=== PATIENT | male | born 1960 | race Caucasian/White ===

== ENCOUNTER 2018-08-10 12:16 | Emergency (ER) | payer BC ==
[2018-08-10] MEDS ORDERED: SODIUM CHLORIDE 0.9% 1,000 ML IV SCH (12:45)
--- NOTE | 2018-08-10 12:47 | ED ---
General Adult HPI - General Chief complaint: Headache Stated complaint: blood clots Time Seen by Provider: 08/10/18 12:35 Source: patient, RN notes reviewed, old records reviewed Mode of arrival: ambulatory Limitations: no limitations - History of Present Illness Initial comments: 57-year-old male presents for evaluation of headache for the past 3 weeks. Headache described as occipital and frontal. Patient was seen at outside clinic and CAT scan was obtained yesterday. The results of this CAT scan today indicated patient had a intracranial hemorrhage. He was told to present to the emergency department for evaluation. Patient states headache is improved over the past 3 weeks. He is not on any anticoagulation. Not currently on any medication. Denies focal numbness or weakness. Denies vision changes. Denies recent trauma. - Related Data Home Medications Medication Instructions Recorded Confirmed Acetaminophen Tab [Tylenol] 650 mg PO Q8H 08/10/18 08/10/18 Ibuprofen [Motrin Ib] 800 mg PO Q8H 08/10/18 08/10/18 Allergies Allergy/AdvReac Type Severity Reaction Status Date / Time levofloxacin [From Levaquin] Allergy Rash/Hives Verified 08/10/18 13:03 Review of Systems ROS Statement: Those systems with pertinent positive or pertinent negative responses have been documented in the HPI. ROS Other: All systems not noted in ROS Statement are negative. Past Medical History Past Medical History: No Reported History History of Any Multi-Drug Resistant Organisms: None Reported Past Surgical History: Appendectomy, Orthopedic Surgery Past Psychological History: No Psychological Hx Reported Smoking Status: Current every day smoker Past Alcohol Use History: Occasional Past Drug Use History: Marijuana General Exam Limitations: no limitations General appearance: alert, in no apparent distress Head exam: Present: atraumatic, normocephalic Eye exam: Present: normal appearance, PERRL, EOMI ENT exam: Present: normal exam Neck exam: Present: normal inspection. Absent: tenderness, meningismus Respiratory exam: Present: normal lung sounds bilaterally. Absent: respiratory distress, wheezes Cardiovascular Exam: Present: regular rate, normal rhythm GI/Abdominal exam: Present: soft. Absent: distended, tenderness Extremities exam: Present: normal inspection, full ROM Neurological exam: Present: alert, oriented X3, CN II-XII intact, normal gait, motor sensory deficit Expanded Speech: Present: fluid speech Cranial nerves: EOM's Intact: Normal, Gag Reflex: Normal, Tongue Deviation: Normal, Nystagmus: Normal Cerebellar function: Finger to Nose: Normal Sensory exam: Upper Extremity Light Touch: Normal, Lower Extremity Light Touch: Normal Motor strength exam: RUE: 5, LUE: 5, RLE: 5, LLE: 5 Eye Response: (4) open spontaneously Motor Response: (6) obeys commands Verbal Response: (5) oriented Psychiatric exam: Present: normal affect, normal mood Skin exam: Present: warm, dry, intact. Absent: cyanosis, diaphoretic Course Vital Signs 08/10/18 12:26 Temperature 98.2 F Pulse Rate 92 Respiratory 20 Rate Blood Pressure 176/83 O2 Sat by Pulse 99 Oximetry Medical Decision Making - Medical Decision Making 57-year-old male presenting with abnormal outpatient computed tomography scan. This is repeated in the emergency department as records are not immediately available for review. Patient has bilateral subdural hematomas which may be chronic measured T-max 6 mm. No midline shift. Patient is well-appearing, no focal neurological deficits. No anticoagulation. Patient will be transferred for neurosurgical evaluation. Case is discussed with Dr. Barney, josefina shah. - Lab Data Result diagrams: 08/10/18 12:47 Lab Results 08/10/18 Range/Units 12:47 Sodium 142 (137-145) mmol/L Potassium 4.5 (3.5-5.1) mmol/L Chloride 110 H (98-107) mmol/L Carbon Dioxide 22 (22-30) mmol/L Anion Gap 10 mmol/L BUN 25 H (9-20) mg/dL Creatinine 0.98 (0.66-1.25) mg/dL Est GFR (CKD-EPI)AfAm >90 (>60 ml/min/1.73 sqM) Est GFR (CKD-EPI)NonAf 86 (>60 ml/min/1.73 sqM) Glucose 119 H (74-99) mg/dL Calcium 9.7 (8.4-10.2) mg/dL Total Bilirubin 0.9 (0.2-1.3) mg/dL AST 21 (17-59) U/L ALT 32 (21-72) U/L Alkaline Phosphatase 60 (38-126) U/L Total Protein 7.2 (6.3-8.2) g/dL Albumin 4.7 (3.5-5.0) g/dL Critical Care Time Critical Care Time: Yes Total Critical Care Time: 35 Disposition Clinical Impression: Bilateral subdural hematomas Disposition: OTHER INSTITUTION NOT DEFINED Condition: Serious Is patient prescribed a controlled substance at d/c from ED?: No Referrals: None,Stated [Primary Care Provider] - 1-2 days Time of Disposition: 13:29 - Out of Hospital Transfer - Req. Specs Out of Hospital Transfer - Requested Specifics: Other Emergency Center ( Transfer to [facility])
[2018-08-10 13:10] LABS: Basophils % (A) 0 %; Eosinophils # (A) 0.1 k/uL (0-0.7); Eosinophils % (A) 2 %; HCT 49.3 % (39.0-53.0); HGB 16.4 gm/dL (13.0-17.5); Lymphocytes # (A) 1.3 k/uL (1.0-4.8); Lymphocytes % (A) 18 %; MCHC 33.4 g/dL (31.0-37.0); Mean Platelet Volume 6.8; Monocytes # (A) 0.4 k/uL (0-1.0); Monocytes % (A) 5 %; Neutrophils # (A) 5.5 k/uL (1.3-7.7); Neutrophils % (A) 74 %; Platelet Count 169 k/uL (150-450); RBC 5.14 m/uL (4.30-5.90); WBC 7.4 k/uL (3.8-10.6)
[2018-08-10 13:19] LABS: ALT 32 U/L (21-72); AST 21 U/L (17-59); Albumin 4.7 g/dL (3.5-5.0); Alkaline Phosphatase 60 U/L (38-126); Anion Gap 10 mmol/L; Blood Urea Nitrogen 25 mg/dL (9-20); Calcium 9.7 mg/dL (8.4-10.2); Carbon Dioxide 22 mmol/L (22-30); Chloride 110 mmol/L (98-107); Glucose 119 mg/dL (74-99); Potassium 4.5 mmol/L (3.5-5.1); Sodium 142 mmol/L (137-145); Total Bilirubin 0.9 mg/dL (0.2-1.3); Total Protein 7.2 g/dL (6.3-8.2)
--- NOTE | 2018-08-10 13:22 | CT ---
EXAMINATION TYPE: CT brain wo con DATE OF EXAM: 08/10/2018 COMPARISON: None HISTORY: Headache CT DLP: 1121.4 mGycm Automated exposure control for dose reduction was used. FINDINGS: Bilateral fluid collections along the cerebral convexities measuring approximate 6 mm in thickness campbell ggestive of chronic subdural hematoma. No acute hemorrhage. No midline shift. Correlate for history o f trauma. Artifact limits assessment for subtle acute hemorrhage. No obvious sizable hemorrhage seen. Cerebellar tonsils are low-lying in position correlate for increased intracranial pressure. IMPRESSION: THERE APPEAR TO BE SYMMETRIC BILATERAL SUBDURAL CHRONIC HEMATOMAS MEASURING APPROXIMATELY 6 MM. CASE DISCUSSED WITH ER PHYSICIAN. NO DEFINITE MIDLINE SHIFT. CEREBELLAR TONSILS ARE LOW-LYING IN POSITION CORRELATE CLINICALLY.
[2018-08-10 13:28] LABS: INR 1.1 (<1.2); Partial Thromboplastin Time 26.2 sec (22.0-30.0); Prothrombin Time 11.7 sec (9.0-12.0)
[2018-08-10 14:01] VITALS: BP 140/96; PULSE 63; RESP 18; TEMP 97.8
== END 2018-08-10 14:17 | disposition other institution (70) ==
LOC: EC 12:16
DX: I62.00 Nontraumatic subdural hemorrhage, unspecified (principal); F17.200 Nicotine dependence, unspecified, uncomplicated; Z79.1 Long term (current) use of non-steroidal anti-inflammatories (NSAID); Z79.899 Other long term (current) drug therapy; Z88.1 Allergy status to other antibiotic agents
CPT/HCPCS: 36415; 70450; 80053; 85025; 85610; 85730; 96360; 99285

== ENCOUNTER → 2024-10-22 | Outpatient (CLI) | payer BC ==
--- NOTE | 2024-10-22 17:29 | CTL ---
EXAMINATION TYPE: CT Low Dose Lung DATE OF EXAM: 10/22/2024 5:15 PM COMPARISON: None. CLINICAL INDICATION: Male, 63 years old with history of Z12.2 ENCNTR SCREEN FOR MALIGNANT NEOPLASM Z8 7.891; , history of tobacco use. TECHNIQUE: Multiple axial non-contrast scans were obtained from approximately the lung apices through the upper abdomen. Coronal and sagittal reformatted images were obtained. Low dose technique was uti lized. MIP were created on a separate workstation and submitted for review. CT DLP: 118.5 mGycm, Automated exposure control for dose reduction was used. CT Contrast: Contrast used: None Oral contrast used: None FINDINGS: Lack of intravenous contrast and low dose technique limits the evaluation of the vascular and soft ti ssue structures. LUNGS: No evidence of pulmonary fibrosis. No evidence of focal consolidation, pneumothorax or pleural effusion. Centrilobular emphysema changes. Nodules: RUL: None. RML: None. RLL: None. LOIS: None. LLL: None. AIRWAY: Patent and unremarkable. HEART: Size within normal limits. Mild coronary artery calcifications present. MEDIASTINUM: No gross evidence of adenopathy. VASCULATURE: No aortic aneurysm. MUSCULOSKELETAL: No acute osseous abnormalities SOFT TISSUES/LYMPH NODES: Unremarkable. LOWER NECK: No significant findings. UPPER ABDOMEN: No significant findings. IMPRESSION: 1. No clinically significant pulmonary nodules. 2. Mild emphysema. CT LUNG RAD AND CT CHEST RECOMMENDATION: Lung-Rad 1 Negative: Continue annual screening with LDCT in 12 months. S Modifier (other clinically significant findings): None Recommend smoking cessation (if current smoker), or continuation of smoking cessation (if prior smoke r). Annual screening for lung cancer with low-dose computed tomography is recommended in adults ages 55 to 77 years who have a 30 pack-year smoking history and currently smoke or have quit within the pa st 15 years. Screening should be discontinued once a person has not smoked for 15 years or develops a health problem that substantially limits life expectancy or the ability or willingness to have curat su lung surgery. Lung rads 2021 [email or web address] [facility], Workstation: [id number], 10/22/2024 5:27 PM
== END | disposition home or self-care (01) ==
LOC: RADCTMAIN 15:46
PROVIDERS: ATTEND Family Medicine
DX: Z12.2 Encounter for screening for malignant neoplasm of respiratory organs (principal); J43.2 Centrilobular emphysema; Z87.891 Personal history of nicotine dependence
CPT/HCPCS: 71271

== ENCOUNTER → 2024-12-12 | Outpatient (CLI) | payer BC ==
--- NOTE | 2024-12-12 10:54 | US ---
EXAMINATION TYPE: US venous doppler duplex LE DATE OF EXAM: 12/12/2024 10:05 AM COMPARISON: NONE CLINICAL INDICATION: Male, 63 years old with history of M79.661 PAIN IN R LEG M79.662 PAIN IN L LEG; Hx of DVT. Patient does not take blood thinners. Pain in bilateral legs x a couple years. TECHNIQUE: The lower extremity deep venous system is examined utilizing real time linear array sonog haily with graded compression, color doppler sonography, and spectral doppler. SIDE PERFORMED: Bilateral FINDINGS: VESSELS IMAGED: Common Femoral Vein Deep Femoral Vein Greater Saphenous Vein * Femoral Vein Popliteal Vein Small Saphenous Vein * Proximal Calf Veins (* superficial vessels) Right Leg: No evidence of DVT. Unable to visualize peroneal veins. Left Leg: No evidence of DVT. IMPRESSION: No ultrasound evidence for acute DVT in either lower extremity. [facility], , 12/12/2024 10:51 AM
--- NOTE | 2024-12-12 11:04 | US ---
EXAMINATION TYPE: US arterial LE multi level DATE OF EXAM: 12/12/2024 10:46 AM COMPARISONS: None. CLINICAL INDICATION: Male, 63 years old with history of M79.661 PAIN IN R LEG M79.662 PAIN IN L LEG; Pain in bilateral legs when walking x a couple years. TECHNIQUE: Systolic pressures were taken of the upper and lower extremity arteries with ankle-brachia l indices and toe brachial indices calculated bilaterally. History of: Smoker: Previous Hypertension: Yes Diabetic: No Hyperlipidemia: No TIA/CVA: No Previous Vascular Surgery: No CAD: No VA: No Vascular Ulcers: No Claudication: Yes bilateral Gangrene: No FINDINGS: Doppler Waveforms: Right: Monophasic Left: Monophasic Brachial Artery systolic pressure: Right: 175 Left: 178 Posterior Tibial artery systolic pressure: Right: 125 Left: 126 Dorsalis Pedis artery systolic pressure: Right: 129 Left: 130 Toe artery systolic pressure: Right: 92 Left: 84 Ankle-Brachial Indices: Right: 0.72 Left: 0.73 Toe Brachial Indices: Right: 0.52 Left: 0.47 (Normal > 0.6; Mild 0.35 - 0.59, Moderate 0.12 - 0.34, Severe <0.12) IMPRESSION: CARLOS: Right: Some Arterial Disease 0.7 - 0.8, , Recommendation: Treat Risk Factors Left: Some Arterial Disease 0.7 - 0.8, , Recommendation: Treat Risk Factors [facility], , 12/12/2024 11:02 AM
== END | disposition home or self-care (01) ==
LOC: RADUSWWP 09:17
PROVIDERS: ATTEND Family Medicine
DX: I77.9 Disorder of arteries and arterioles, unspecified (principal)
CPT/HCPCS: 93923; 93970

== ENCOUNTER 2025-01-17 08:36 | Day surgery (SDC) | payer BC ==
[2025-01-17] MEDS: IV FLUID CONTINUATION 1,000 ML IV ONE (08:50)
[2025-01-17 08:58] VITALS: RESP 16; TEMP 97.3
[2025-01-17] MEDS: LACTATED RINGERS 1,000 ML IV SCH (09:03)
[2025-01-17] MEDS ORDERED: PROPOFOL 10 MG/ML 20 ML VIAL IV ONE (09:13)
--- NOTE | 2025-01-17 09:32 | P.PCN ---
Date of Procedure: 01/17/25 Procedure(s) Performed: BRIEF HISTORY: Patient is a 64-year-old pleasant white male scheduled for an elective colonoscopy as a part of screening for colon cancer. He does have family history of colon cancer diagnosed in his father and grandfather in the 60s respectively PROCEDURE PERFORMED: Colonoscopy with snare polypectomy. PREOPERATIVE DIAGNOSIS: Screening for colon cancer and family history of colon cancer. IV sedation per Anesthesia. PROCEDURE: After informed consent was obtained, the patient, was brought into the endoscopy unit. IV sedation was administered by Anesthesia under continuous monitoring. Digital rectal examination was normal. Initially the Olympus CF-160 flexible video colonoscope was then inserted in the rectum, gradually advanced into the cecum without any difficulty. Careful examination was performed as the scope was gradually being withdrawn. Ileocecal valve and the appendiceal orifice were visualized and appeared normal. Prep was excellent. Mucosa of the cecum, ascending colon, transverse colon, descending colon, appeared normal. In the sigmoid colon there was a 1 cm polyp removed by hot snare polypectomy. In the rectosigmoid colon there was a 5 mm polyp removed by cold snare polypectomy. Scattered left-sided diverticulosis seen. Rest of the sigmoid colon, and rectum appeared normal. Retroflexion was performed in the rectum and no lesions were seen. The patient tolerated the procedure well. IMPRESSION: 1 cm sigmoid colon polyp status post hot snare polypectomy 5 mm rectosigmoid polyp status post cold snare polypectomy Scattered sigmoid diverticulosis RECOMMENDATIONS: Findings of this examination were discussed with the patient as well as his family.. He was advised to follow-up with the biopsy results. Recommend repeat colonoscopy in 3 years because of family history of colon butts cancer and personal history of polyps
[2025-01-17 09:37] VITALS: BP 111/77; PULSE 56
== END 2025-01-17 10:20 | disposition home or self-care (01) ==
LOC: ORWHC2ENDO 08:36
PROVIDERS: ATTEND Internal Medicine Gastroenterology
DX: Z12.11 Encounter for screening for malignant neoplasm of colon (principal); D12.7 Benign neoplasm of rectosigmoid junction; D12.5 Benign neoplasm of sigmoid colon; K57.30 Diverticulosis of large intestine without perforation or abscess without bleeding; I10 Essential (primary) hypertension; F32.A Depression, unspecified; Z79.899 Other long term (current) drug therapy; Z87.891 Personal history of nicotine dependence; Z80.0 Family history of malignant neoplasm of digestive organs; Z88.1 Allergy status to other antibiotic agents
CPT/HCPCS: 88305; 45385; J2704